=== PATIENT | male | born 2005 | race Caucasian/White ===

== ENCOUNTER 2025-02-17 14:27 | Emergency (ER) | payer OTHER, SELFPAY ==
[2025-02-17 14:28] VITALS: BP 165/99; PULSE 74; RESP 15; TEMP 36.3; O2SAT 99; BMI 27.0
--- NOTE | 2025-02-17 14:45 | RAD_ITS ---
PROCEDURE: ANKLE MIN 3 VIEWS 02/17/2025 REASON FOR EXAM: INJURY TECHNIQUE: Procedure Code: RADANK Modality: DX Procedure: ANKLE MIN 3 VIEWS Laterality: Left COMPARISON: None. FINDINGS: BONES: No acute fracture or focal osseous lesion. JOINTS: No dislocation. The joint spaces are preserved. A tibiotalar joint effusion is present. SOFT TISSUES: Moderate swelling in the lateral ankle. RAD/Ankle min 3 Views IMPRESSION: 1. No acute fracture seen. 2. Lateral ankle soft tissue swelling and tibiotalar joint effusion. Reading Location: [id number]
--- NOTE | 2025-02-17 14:50 | EDS_ITS ---
HPI History of Present Illness Chief Complaint: Lower Extremity Injury Informant: patient Narrative Narrative: 19-year-old male presenting to the emergency department with a chief complaint of left ankle injury. Patient was at work today when he went to jump out of the truck and rolled his left ankle. He has pain over the lateral aspect of the left ankle. He denies any other injuries. PFSH PFSH Medical History no medical history Allergy/AdvReac Type Severity Reaction Status Date / Time amoxicillin Allergy Mild Hives Verified 02/17/25 14:28 Family History no significant family his Surgical History no surgical history Social History Smoking Status: Never smoker ROS ROS ED Constitutional Constitutional ED: Denies chills or weight loss Eyes Eyes: Denies change in vision or diplopia ENT ENT ED: Denies ear pain, rhinorrhea or sore throat Cardiovascular Cardiovascular: Denies chest pain, orthopnea, palpitations or racing heartbeat Respiratory/Chest Respiratory/Chest: Denies cough, dyspnea or orthopnea Gastrointestinal Gastrointestinal: Denies abdominal pain, diarrhea, nausea or vomiting Genitourinary Genitourinary ED: Denies dysuria, hematuria or urinary frequency Musculoskeletal Musculoskeletal: Reports other Details: See history of present illness ; Denies arthralgias, back pain, myalgias or neck pain Integumentary Denies abscess or rash Neurologic Neurologic: Denies headache(s) or weakness Psychiatric Psychiatric: Denies anxiety, depression, suicidal ideation or suicidal thoughts Endocrine Endocrinology: Denies polydipsia, polyphagia or polyuria Allergic/Immunologic Allergic/Immunologic ED: Denies mouth swelling, tongue swelling or urticaria EXAM Physical Exam Const Vital Signs: 02/17/25 14:28 Temperature 97.4 F L Temperature Source Temporal Pulse Rate 74 Respiratory Rate 15 Blood Pressure 165/99 H Blood Pressure Mean 121 Pulse Ox 99 Oxygen Delivery Method Room Air Positive well nourished and well developed General Appearance ED: well developed and NAD HEENT Reports normocephalic, head/scalp atraumatic and moist mucous membranes Eyes PERRL and EOMs intact bilaterally Neck full ROM, no lymphadenopathy, supple and no JVD Resp normal respiratory effort and clear to auscultation bilaterally Cardio regular rate, regular rhythm and no murmurs GI normal to inspection, nondistended, normoactive bowel sounds and non-tender Palpation: soft Back/Spine no CVA tenderness and normal ROM Extremity Extremity Narrative: There is swelling tenderness and ecchymosis over the lateral malleolus of the left ankle. There is no posterior medial malleolar pain. Neurovascular intact. There is no fifth metatarsal or proximal fibular pain. Tibial shaft is nontender. General Extremety ED: Negative for edema General Extremity: Negative for edema Neuro oriented x3 and CN's II-XII intact bilaterally Sensorium / Orientation: alert Motor Exam: strength 5/5 throughout Psych mental status grossly normal Mood & Affect: Negative for depressed or tearful Skin no rashes or lesions noted and no wounds MDM MDM MDM Narrative Medical decision making narrative: Differential diagnosis includes fracture ankle sprain neurovascular injury Data interpretation the plain films of the left ankle is no acute fracture. Patient be placed in a air splint. Ice anti-inflammatories rest. Follow-up 1 to 2 weeks with Workmen's Comp. History & Record Review Discussion w/independent historian: Patient Radiography Diagnostic Testing: Clinical Impression(s) from Imaging Studies Ankle X-Ray 02/17/25 14:45 IMPRESSION: 1. No acute fracture seen. 2. Lateral ankle soft tissue swelling and tibiotalar joint effusion. Reading Location: [facility] Discharge Plan Triage Chief Complaint: Lower Extremity Injury ED Provider: Adolfo Hernandez Dx/Rx/DC Orders Clinical Impression: Left ankle sprain, Ankle pain, left Instructions: ED Ankle Sprain (Adult) Primary Care Provider: Care Physician,No Primary Referrals: [facility] [Provider Group] - 1-2 Weeks Care Physician,No Primary [Primary Care Provider, Medical] Print Language: Frisian Disposition Disposition: Home, Self Care
[2025-02-17 15:39] VITALS: BP 165/99; PULSE 74; RESP 15; TEMP 36.3; O2SAT 99
== END 2025-02-17 15:40 | disposition home or self-care (01) ==
PROVIDERS: Emergency Provider Emergency Medicine; Visit Provider Emergency Medicine
DX: S93.402A Sprain of unspecified ligament of left ankle, initial encounter (principal); V58.9XXA Unspecified occupant of pick-up truck or van injured in noncollision transport accident in traffic accident, initial encounter; Y99.0 Civilian activity done for income or pay
CPT/HCPCS: 73610; 99283

== ENCOUNTER → 2025-03-07 | Outpatient (CLI) | payer OTHER, SELFPAY ==
--- NOTE | 2025-03-07 07:58 | MRI_ITS ---
PROCEDURE: LOWER EXT JOINT ONLY (ROUTINE) 03/07/2025 REASON FOR EXAM: ANKLE SPRAIN TECHNIQUE: Procedure Code: MRILEJ Modality: MR Procedure: LOWER EXT JOINT ONLY (ROUTINE) Multiplanar and multisequence images were obtained without IV contrast administration. COMPARISON: 17-Feb-2025 FINDINGS: Subcortical patchy marrow edema of the medial and lateral malleoli with related low signal lines. Thickening and edema signal involving the anterior talofibular ligament with surrounding soft tissue edema and possible partial avulsion of its fibular insertion. Mild thickening and edema signal of the posterior talofibular ligament as well as the tibio-talar component of the deltoid ligament. Intact tibio-fibular ligaments. The interosseous ligament between the talus and calcaneus is intact. The Achilles tendon appears intact and shows homogenous signal. Fluid signal seen encasing the intact flexor hallucis longus, tibialis posterior, flexor digitorum longus, peroneus longus and brevis tendons. The examined tendons of the extensor tendons are intact. Mild tibiotalar, tibio-fibular, sub-talar and inter-tarsal joints effusion. No synovial thickening. No marrow infiltrative lesions Neurovascular tissue appear normal. Subcutaneous soft tissue edema of the anterolateral aspect of the ankle. MRI/Lower Ext Joint Only (Routine) IMPRESSION: Medial and lateral malleoli trabecular injuries with possible microtrabecular f ractures. Grade II of the anterior talofibular ligament. Grade I sprain posterior talofibular and deltoid ligaments. Flexor hallucis longus, tibialis posterior, flexor digitorum longus, peroneus l ongus and brevis tenosynovitis. Mild tibiotalar, tibio-fibular, sub-talar and inter-tarsal joints effusion. [facility]
== END | disposition home or self-care (01) ==
LOC: OPMRI 07:56
PROVIDERS: Referring Provider Physician Assistant Surgical; Visit Provider Physician Assistant Surgical
DX: S93.402A Sprain of unspecified ligament of left ankle, initial encounter (principal)
CPT/HCPCS: 73721